=== PATIENT | male | born 1955 | race Caucasian/White ===

== ENCOUNTER 2017-06-22 06:54 | Emergency (ER) | payer OTHER ==
[~2017-06-22] VITALS: Ht 182.9 cm; Wt 107.4 kg
[~2017-06-22 06:54] MED LIST: ANAPROX DS550 M1 PO; ATARAX,VISTARIL50 MG PO; AUGMENTIN875 MG PO; Augmentin PO; BENADRYL25 MG PO; DILAUDID4 MG PO; DULCOLAX10 MG PR; Dulcolax PR; FLAGYL500 MG PO; KEFLEX500 MG PO; MORPHINE SULFAT15 M1 PO; NOHOMEMEDS; PERCOCET 5/31 TABLET PO; PREDNISONE10 MG PO; SILVADENE20 GM TP; Silvadene,SSD,Therma TP; THERAGRAN1 TABLET PO; Theragran PO; VICODIN,LORT1 TABLET PO
[2017-06-22 07:23] LABS: BASOPHIL COUNT 0.1 K/uL (0-0.1); EOSINOPHIL (%) 6.9 % (0-5); EOSINOPHIL COUNT 0.7 K/uL (0-0.3); HEMATOCRIT 49.8 % (38.0-50.0); IMMATURE GRANULOCYTE (%) 0.3 % (0.0-0.7); INSTRUMENT ABS NEUTROPHIL CT 5.4 K/uL; LYMPHOCYTE COUNT 2.8 K/uL (1.0-2.8); MCH 31.3 PG (29.0-34.0); MCHC 34.7 G/DL (30.0-36.0); MCV 90.1 FL (86-99); MEAN PLAT.VOLUME 9.2 uM^3 (9.0-12.4); MONOCYTE (%) 8.1 % (3-12); MONOCYTE COUNT 0.8 K/uL (0-0.8); NEUTROPHIL (%) 55.7 % (45-76); NEUTROPHIL COUNT 5.4 K/uL (1.8-6.4); PLATELET COUNT 336 K/uL (156-360); RBC DIS.WIDTH-CV 13.9 % (11.8-14.6); RBC DIS.WIDTH-SD 46.5 % (39-53); RED BLOOD COUNT 5.53 M/uL (4.00-5.50); WHITE BLOOD COUNT 9.7 K/uL (4.1-10.2)
[2017-06-22 07:29] LABS: INTER. NORMALIZED RATIO 1.1
[2017-06-22 08:03] LABS: ANION GAP 9 MEQ/L (2-14); CHLORIDE 107 MEQ/L (99-109); POTASSIUM 3.8 MEQ/L (3.7-5.4); SAMPLE HEMOLYSIS CHECK 0; SAMPLE ICTERIC CHECK 0; SAMPLE LIPEMIA CHECK 0; SODIUM 141 MEQ/L (136-147); TOTAL BILIRUBIN 0.4 MG/DL (0.0-1.0)
[2017-06-22 08:08] LABS: ALKALINE PHOSPHATASE 77 IU/L (3-129); GFR ESTIMATE (CALCULATED) > 59 mL/min/; GLUCOSE 94 mg/dL (70-99); UREA NITROGEN (BUN) 7 mg/dL (9-23)
[2017-06-22 09:29] VITALS: BP 148/93
== END 2017-06-22 09:30 | disposition home or self-care (01) ==
LOC: EME 06:54
PROVIDERS: Emergency Medicine
DX: R10.10 Upper abdominal pain, unspecified (principal); M10.9 Gout, unspecified; M06.9 Rheumatoid arthritis, unspecified; F17.200 Nicotine dependence, unspecified, uncomplicated; Z79.891 Long term (current) use of opiate analgesic; Z59.0 Homelessness
CPT/HCPCS: 74022; 80053; 85025; 85610; 99281; 99284

== ENCOUNTER 2018-02-19 04:26 | Inpatient (IN) | payer OTHER ==
[~2018-02-19] VITALS: Ht 185.4 cm; Wt 121.0 kg
[2018-02-19 04:46] LABS: BASOPHIL (%) 0.5 % (0-1); BASOPHIL COUNT 0.1 K/uL (0-0.1); EOSINOPHIL (%) 0.4 % (0-5); EOSINOPHIL COUNT 0.1 K/uL (0-0.3); HEMATOCRIT 49.7 % (38.0-50.0); HEMOGLOBIN 17.4 G/DL (12.5-16.6); IMMATURE GRANULOCYTE (%) 0.7 % (0.0-0.7); LYMPHOCYTE (%) 3.8 % (15-42); LYMPHOCYTE COUNT 0.8 K/uL (1.0-2.8); MCH 32.4 PG (29.0-34.0); MCV 92.6 FL (86-99); MONOCYTE (%) 3.8 % (3-12); MONOCYTE COUNT 0.8 K/uL (0-0.8); NEUTROPHIL (%) 90.8 % (45-76); PLATELET COUNT 310 K/uL (156-360); RBC DIS.WIDTH-CV 13.2 % (11.8-14.6); RBC DIS.WIDTH-SD 44.9 % (39-53); RED BLOOD COUNT 5.37 M/uL (4.00-5.50)
[2018-02-19 04:54] LABS: AMYLASE 34 IU/L (1-118); CHLORIDE 101 mEq/L (99-109); POTASSIUM 4.3 mEq/L (3.7-5.4); SODIUM 139 mEq/L (136-147)
[2018-02-19 04:56] LABS: GLUCOSE 142 mg/dL (70-99); INTER. NORMALIZED RATIO 1.2
[2018-02-19 04:59] LABS: PTT 55.1 SEC (25-37); SERUM ETHYL ALCOHOL < 10 mg/dL
[2018-02-19 05:00] LABS: CREATININE 1.1 mg/dL (0.6-1.3); GFR ESTIMATE (CALCULATED) > 59 mL/min/ (58.99-99999)
[2018-02-19 05:01] LABS: UREA NITROGEN (BUN) 10 mg/dL (9-23)
[2018-02-19 05:03] LABS: LIPASE 4 U/L (1.0-51.0)
[2018-02-19 05:09] LABS: TROP-I INTERPRETATION POSITIVE
[2018-02-19 05:10] LABS: TROPONIN-I 0.95 ng/mL (0.0-0.30)
[2018-02-19 08:00] VITALS: BP 108/69
[2018-02-19 08:18] LABS: SITE FEM ALINE
[2018-02-19 08:19] LABS: CARBOXY HGB 2.4 % (0-5); DEVICE 840 PB; FI02 100 %; INSPIRATION TIME 0.8 seconds; MECHANICAL RATE 20 resp/min; METHEMOGLOBIN 1.2 % (0-1.5); MODE AC VC+; O2 FLOW 60 L/MIN; PCO2 53 mm Hg (35-45); PEEP 5 CM/H20; PO2 253 mm Hg (80-100); TIDAL VOLUME 500 ML; TOTAL RESP RATE 27 resp/min
[2018-02-19 08:20] LABS: BASE EXCESS -13.5 mEq/L (-3 to +3); BICARBONATE 16.5 mEq/L (22-26)
[2018-02-19 09:32] LABS: DEVICE 840 PB; FI02 100 %; MECHANICAL RATE 12 resp/min; MODE AC; O2 FLOW 50 L/MIN; SITE FEM ALINE; TOTAL RESP RATE 12 resp/min
[2018-02-19 09:33] LABS: BASE EXCESS -8.6 mEq/L (-3 to +3); BICARBONATE 19.2 mEq/L (22-26); CARBOXY HGB 1.9 % (0-5); METHEMOGLOBIN 1.5 % (0-1.5); PCO2 47 mm Hg (35-45); PEEP 5 CM/H20; PO2 283 mm Hg (80-100); TIDAL VOLUME 800 ML; pH 7.22 (7.35-7.45)
[2018-02-19 10:49] LABS: APPEARANCE CLEAR ((CLEAR)); BILIRUBIN NEGATIVE; BLOOD MODERATE; COLOR STRAW ((YELLOW)); GLUCOSE (STRIP) NEGATIVE; KETONES NEGATIVE; LEUKOCYTES NEGATIVE; NITRITE NEGATIVE; PROTEIN (STRIP) NEGATIVE; SPECIFIC GRAVITY 1.017 (1.000-1.030); UROBILINOGEN 0.2 MG/DL (0.2-1.0)
[2018-02-19 11:05] LABS: BACTERIA NONE SEEN /HPF; EPITHELIAL CELLS NONE SEEN /HPF; MUCUS NONE SEEN /LPF; RED BLOOD CELLS NONE SEEN /HPF (0-5); UCUL ADDED? NO; WHITE BLOOD CELLS NONE SEEN /HPF (0-5)
[2018-02-19 11:48] LABS: CARBOXY HGB 1.4 % (0-5); PCO2 55 mm Hg (35-45); PO2 378 mm Hg (80-100)
[2018-02-19 11:49] LABS: BASE EXCESS -13.1 mEq/L (-3 to +3); BICARBONATE 17.1 mEq/L (22-26); DEVICE 840 PB; FI02 100 %; MECHANICAL RATE 12 resp/min; METHEMOGLOBIN 1.3 % (0-1.5); MODE AC; O2 FLOW 50 L/MIN; SITE FEM ALINE; TOTAL RESP RATE 12 resp/min
[2018-02-19 11:50] LABS: PEEP 5 CM/H20; TIDAL VOLUME 800 ML
[2018-02-19 13:03] LABS: BASOPHIL (%) 0.4 % (0-1); BASOPHIL COUNT 0.1 K/uL (0-0.1); EOSINOPHIL (%) 0 % (0-5); IMMATURE GRANULOCYTE (%) 1.3 % (0.0-0.7); LYMPHOCYTE (%) 2.4 % (15-42); LYMPHOCYTE COUNT 0.8 K/uL (1.0-2.8); MONOCYTE (%) 5.9 % (3-12); MONOCYTE COUNT 1.9 K/uL (0-0.8); NEUTROPHIL COUNT 28.5 K/uL (1.8-6.4); PLATELET COUNT 352 K/uL (156-360)
[2018-02-19 13:05] LABS: CARBON DIOXIDE (BICARBONATE) 20.6 MEQ/L (20-31)
[2018-02-19 13:05] LABS: INTER. NORMALIZED RATIO 1.2
[2018-02-19 13:31] LABS: PCO2 37 mm Hg (35-45); PO2 362 mm Hg (80-100); pH 7.24 (7.35-7.45)
[2018-02-19 13:32] LABS: BASE EXCESS -10.7 mEq/L (-3 to +3); BICARBONATE 15.9 mEq/L (22-26); CARBOXY HGB 1.3 % (0-5); METHEMOGLOBIN 1.2 % (0-1.5)
[2018-02-19 13:32] LABS: CHLORIDE 104 MEQ/L (99-109); GFR ESTIMATE (CALCULATED) > 59 mL/min/ (58.99-99999); MAGNESIUM 1.8 mg/dl (1.3-2.7); PHOSPHORUS 4.4 mg/dL (2.5-4.9); POTASSIUM 4.4 MEQ/L (3.7-5.4); SODIUM 135 MEQ/L (136-147); UREA NITROGEN (BUN) 12 mg/dL (9-23)
[2018-02-19 13:33] LABS: DEVICE 840 PB; FI02 100 %; MECHANICAL RATE 16 resp/min; MODE AC; O2 FLOW 50 L/MIN; PEEP 5 CM/H20; SITE FEM ALINE; TIDAL VOLUME 800 ML; TOTAL RESP RATE 16 resp/min
[2018-02-19 13:33] LABS: GLUCOSE 317 mg/dL (70-99)
[2018-02-19 13:40] LABS: HEMATOCRIT 48.6 % (38.0-50.0); HEMOGLOBIN 16.5 G/DL (12.5-16.6); MCH 31.6 PG (29.0-34.0); MCV 93.1 FL (86-99); RBC DIS.WIDTH-CV 13.4 % (11.8-14.6); RBC DIS.WIDTH-SD 46.1 % (39-53); RED BLOOD COUNT 5.22 M/uL (4.00-5.50); TROP-I INTERPRETATION POSITIVE; TROPONIN-I 60.38 ng/mL (0.0-0.30)
[2018-02-19 13:43] LABS: WHITE BLOOD COUNT 31.7 K/uL (4.1-10.2)
[2018-02-19 14:36] LABS: HDL CHOLESTEROL 41 MG/DL (Desirable>=40); LDL CHOLESTEROL 85 mg/dL (Desirable<100); NON-HDL CHOLESTEROL 98 mg/dL (Desirable<160); TOTAL CHOLESTEROL 139 mg/dL (Desirable<200); TOTAL CK 2701 IU/L (1-294); TRIGLYCERIDES 66 MG/DL (Normal: <150)
[2018-02-19 14:43] LABS: CK-MB 590.9 ng/mL (0.0-4.9); CKMB RELATIVE INDEX 21.9 (0.0-3.9); CREATINE KINASE 2701 IU/L (1-294)
[2018-02-19 16:38] LABS: BENZODIAZEPINES, URINE SCREEN POSITIVE (200 ng/mL); UR CREATININE CONCENTRATION 93.5 MG/DL
[2018-02-19 17:17] LABS: URINE OSMOLALITY 570 MOSM/KG (300-1100)
[2018-02-19 18:09] LABS: BASOPHIL (%) 0.3 % (0-1); BASOPHIL COUNT 0.1 K/uL (0-0.1); EOSINOPHIL (%) 0 % (0-5); HEMATOCRIT 47.8 % (38.0-50.0); HEMOGLOBIN 15.9 G/DL (12.5-16.6); IMMATURE GRANULOCYTE (%) 0.8 % (0.0-0.7); LYMPHOCYTE (%) 3.1 % (15-42); LYMPHOCYTE COUNT 0.8 K/uL (1.0-2.8); MCH 31.1 PG (29.0-34.0); MCHC 33.3 G/DL (30.0-36.0); MCV 93.4 FL (86-99); MONOCYTE COUNT 1.1 K/uL (0-0.8); NEUTROPHIL (%) 91.8 % (45-76); NEUTROPHIL COUNT 25.2 K/uL (1.8-6.4); PLATELET COUNT 316 K/uL (156-360); RBC DIS.WIDTH-CV 13.3 % (11.8-14.6); RBC DIS.WIDTH-SD 46.1 % (39-53); RED BLOOD COUNT 5.12 M/uL (4.00-5.50); WHITE BLOOD COUNT 27.5 K/uL (4.1-10.2)
[2018-02-19 18:19] LABS: CHLORIDE 108 MEQ/L (99-109); MAGNESIUM 1.8 mg/dl (1.3-2.7); SODIUM 135 MEQ/L (136-147)
[2018-02-19 18:25] LABS: CREATININE 0.9 MG/DL (0.6-1.3); GFR ESTIMATE (CALCULATED) > 59 mL/min/ (58.99-99999); GLUCOSE 286 mg/dL (70-99); PHOSPHORUS 4.5 mg/dL (2.5-4.9); UREA NITROGEN (BUN) 12 mg/dL (9-23)
[2018-02-19 18:35] LABS: COMMENTS - BLOOD GASES VENOUS; DEVICE VENT; FI02 50 %; MECHANICAL RATE 15 resp/min; MODE ACVC; PCO2 57 mm Hg (35-45); PEEP 5 CM/H20; SITE CENTRAL LINE; TIDAL VOLUME 800 ML; TOTAL RESP RATE 15 resp/min; pH 7.14 (7.35-7.45)
[2018-02-19 18:36] LABS: BASE EXCESS -10.4 mEq/L (-3 to +3); BICARBONATE 19.4 mEq/L (22-26); PO2 30 mm Hg (80-100)
[2018-02-19 18:45] LABS: TROP-I INTERPRETATION POSITIVE; TROPONIN-I 57.04 ng/mL (0.0-0.30)
[2018-02-19 19:00] VITALS: BP 85/57
[2018-02-20 03:36] LABS: INTER. NORMALIZED RATIO 1.2
[2018-02-20 03:39] LABS: PTT 44.7 SEC (25-37)
[2018-02-20 03:46] LABS: TOTAL CK 2480 IU/L (1-294)
[2018-02-20 03:52] LABS: TROP-I INTERPRETATION POSITIVE
[2018-02-20 04:09] LABS: CK-MB 379.1 ng/mL (0.0-4.9); CKMB RELATIVE INDEX 15.3 (0.0-3.9); CREATINE KINASE 2480 IU/L (1-294)
[2018-02-20 04:10] LABS: TROPONIN-I 93.68 ng/mL (0.0-0.30)
[2018-02-20 08:58] LABS: HEMOGLOBIN A1c (GLYCOHEMOGLOB) 5.6 % (Below 5.7)
[2018-02-20 16:51] LABS: CHLORIDE 113 MEQ/L (99-109); CREATININE 0.9 MG/DL (0.6-1.3); GFR ESTIMATE (CALCULATED) > 59 mL/min/ (58.99-99999); GLUCOSE 144 mg/dL (70-99); POTASSIUM 4.4 MEQ/L (3.7-5.4); SODIUM 140 MEQ/L (136-147); UREA NITROGEN (BUN) 15 mg/dL (9-23)
[2018-02-20 17:30] LABS: TROP-I INTERPRETATION POSITIVE
[2018-02-21 08:15] LABS: DEVICE 940; FI02 40 %; MODE A/C; SITE LINE
[2018-02-21 08:16] LABS: MECHANICAL RATE 12 resp/min; PEEP 10 CM/H20; TIDAL VOLUME 800 ML; TOTAL RESP RATE 12 resp/min; pH 7.34 (7.35-7.45)
[2018-02-21 08:17] LABS: BASE EXCESS -1.7 mEq/L (-3 to +3); BICARBONATE 24.3 mEq/L (22-26); CARBOXY HGB 1.6 % (0-5); METHEMOGLOBIN 0.9 % (0-1.5); PCO2 45 mm Hg (35-45); PO2 35 mm Hg (80-100)
[2018-02-21 08:18] LABS: CHLORIDE 112 MEQ/L (99-109); CREATININE 0.8 MG/DL (0.6-1.3); GFR ESTIMATE (CALCULATED) > 59 mL/min/ (58.99-99999); GLUCOSE 127 mg/dL (70-99); POTASSIUM 4.6 MEQ/L (3.7-5.4); SODIUM 143 MEQ/L (136-147); UREA NITROGEN (BUN) 16 mg/dL (9-23)
[2018-02-21 09:30] LABS: CARBOXY HGB 1.5 % (0-5); COMMENTS - BLOOD GASES C+; DEVICE 840; FI02 40 %; MECHANICAL RATE 12 resp/min; MODE A/C; PCO2 41 mm Hg (35-45); PEEP 10 CM/H20; PO2 93 mm Hg (80-100); SITE ALINE; TIDAL VOLUME 800 ML; TOTAL RESP RATE 12 resp/min; pH 7.36 (7.35-7.45)
[2018-02-21 09:31] LABS: BASE EXCESS -2.2 mEq/L (-3 to +3); BICARBONATE 23.2 mEq/L (22-26); METHEMOGLOBIN 1.4 % (0-1.5)
[2018-02-21 10:25] LABS: CREATINE KINASE 530 IU/L (1-294); TOTAL CK 530 IU/L (1-294)
[2018-02-21 10:44] LABS: TROP-I INTERPRETATION POSITIVE; TROPONIN-I 26.86 ng/mL (0.0-0.30)
[2018-02-21 11:20] LABS: CK-MB 36.8 ng/mL (0.0-4.9); CKMB RELATIVE INDEX 6.9 (0.0-3.9)
[2018-02-21 13:37] LABS: COMMENTS - BLOOD GASES C+; DEVICE 840; FI02 40 %; MECHANICAL RATE 12 resp/min; MODE A/C; PCO2 40 mm Hg (35-45); PEEP 10 CM/H20; PO2 83 mm Hg (80-100); SITE ALINE; TIDAL VOLUME 800 ML; TOTAL RESP RATE 12 resp/min; pH 7.37 (7.35-7.45)
[2018-02-21 13:38] LABS: BICARBONATE 23.1 mEq/L (22-26); CARBOXY HGB 1.1 % (0-5); METHEMOGLOBIN 1.3 % (0-1.5)
[2018-02-22] VITALS (14 sets, daily range): BP systolic 85–118; BP diastolic 53–76
[2018-02-22 00:10] LABS: COMMENTS - BLOOD GASES C; DEVICE VENT; FI02 50 %; MECHANICAL RATE 12 resp/min; MODE AC; PEEP 10 CM/H20; SITE RF ALINE; TIDAL VOLUME 800 ML; TOTAL RESP RATE 12 resp/min
[2018-02-22 00:11] LABS: PCO2 42 mm Hg (35-45); PO2 105 mm Hg (80-100); pH 7.37 (7.35-7.45)
[2018-02-22 00:12] LABS: BICARBONATE 24.3 mEq/L (22-26); CARBOXY HGB 2.6 % (0-5); METHEMOGLOBIN 0.6 % (0-1.5); O2 SATURATION (CALCULATED) 97.2 % (95-99)
[2018-02-22 04:37] LABS: BASOPHIL (%) 0.6 % (0-1); BASOPHIL COUNT 0.1 K/uL (0-0.1); EOSINOPHIL (%) 0.7 % (0-5); EOSINOPHIL COUNT 0.1 K/uL (0-0.3); HEMOGLOBIN 12.5 G/DL (12.5-16.6); IMMATURE GRANULOCYTE (%) 0.6 % (0.0-0.7); LYMPHOCYTE (%) 17.3 % (15-42); LYMPHOCYTE COUNT 2.1 K/uL (1.0-2.8); MCHC 33.8 G/DL (30.0-36.0); MCV 94.6 FL (86-99); MONOCYTE COUNT 1.2 K/uL (0-0.8); NEUTROPHIL (%) 70.8 % (45-76); NEUTROPHIL COUNT 8.6 K/uL (1.8-6.4); RBC DIS.WIDTH-CV 14.9 % (11.8-14.6); RBC DIS.WIDTH-SD 51.7 % (39-53); RED BLOOD COUNT 3.91 M/uL (4.00-5.50); WHITE BLOOD COUNT 12.1 K/uL (4.1-10.2)
[2018-02-22 04:38] LABS: INTER. NORMALIZED RATIO 1.4
[2018-02-22 04:40] LABS: PTT 64.4 SEC (25-37)
[2018-02-22 04:45] LABS: ALBUMIN 2.8 g/dL (3.2-4.8); POTASSIUM 4.2 mEq/L (3.7-5.4); SODIUM 141 mEq/L (136-147)
[2018-02-22 04:47] LABS: GLUCOSE 100 mg/dL (70-99); TOTAL PROTEIN 5.1 g/dL (6.4-8.3)
[2018-02-22 04:49] LABS: TOTAL BILIRUBIN 0.5 mg/dL (0.0-1.0)
[2018-02-22 04:51] LABS: ALKALINE PHOSPHATASE 63 IU/L (3-129); CREATININE 0.7 mg/dL (0.6-1.3); GFR ESTIMATE (CALCULATED) > 59 mL/min/ (58.99-99999)
[2018-02-22 04:52] LABS: AST (GOT) 63 IU/L (2-34); UREA NITROGEN (BUN) 16 mg/dL (9-23)
[2018-02-22 04:53] LABS: DIRECT BILIRUBIN 0.3 mg/dL (0.0-0.3)
[2018-02-22 04:54] LABS: ALT (GPT) 51 IU/L (3-49)
[2018-02-22 04:55] LABS: CHLORIDE 113 mEq/L (99-109)
[2018-02-22 05:18] LABS: PLAT.SUFFICIENCY ADEQUATE; PLATELET COUNT UNABLE TO REPORT K/uL (156-360)
[2018-02-22 05:36] LABS: COMMENTS - BLOOD GASES C; DEVICE VENT; SITE RF ALINE
[2018-02-22 05:37] LABS: FI02 50 %; MECHANICAL RATE 12 resp/min; MODE AC; PEEP 10 CM/H20; TIDAL VOLUME 750 ML; TOTAL RESP RATE 12 resp/min
[2018-02-22 05:38] LABS: BASE EXCESS -1.3 mEq/L (-3 to +3); BICARBONATE 24.3 mEq/L (22-26); CARBOXY HGB 1.4 % (0-5); O2 SATURATION (CALCULATED) 96.2 % (95-99); PCO2 43 mm Hg (35-45); PO2 99 mm Hg (80-100); pH 7.36 (7.35-7.45)
[2018-02-22 05:46] LABS: COMMENTS - BLOOD GASES MIXED VENOUS; DEVICE VENT; FI02 50 %; SITE SWAN
[2018-02-22 05:47] LABS: BICARBONATE 24.3 mEq/L (22-26); CARBOXY HGB 2.1 % (0-5); MECHANICAL RATE 12 resp/min; METHEMOGLOBIN 0.6 % (0-1.5); MODE AC; O2 SATURATION (CALCULATED) 75.9 % (95-99); PCO2 44 mm Hg (35-45); PEEP 10 CM/H20; PO2 38 mm Hg (80-100); TIDAL VOLUME 750 ML; TOTAL RESP RATE 12 resp/min; pH 7.35 (7.35-7.45)
[2018-02-22 05:48] LABS: BASE EXCESS -1.4 mEq/L (-3 to +3)
[2018-02-22] MEDS ORDERED: AVENTYL,PAMELOR50 MG PO (11:52)
[2018-02-23] VITALS (23 sets, daily range): BP systolic 88–105; BP diastolic 54–71
[2018-02-23 08:30] LABS: BASOPHIL (%) 0.4 % (0-1); EOSINOPHIL (%) 2.9 % (0-5); EOSINOPHIL COUNT 0.3 K/uL (0-0.3); HEMATOCRIT 36.3 % (38.0-50.0); HEMOGLOBIN 11.5 G/DL (12.5-16.6); IMMATURE GRANULOCYTE (%) 0.5 % (0.0-0.7); LYMPHOCYTE COUNT 2.2 K/uL (1.0-2.8); MCH 30.9 PG (29.0-34.0); MCHC 31.7 G/DL (30.0-36.0); MCV 97.6 FL (86-99); MONOCYTE (%) 11.5 % (3-12); MONOCYTE COUNT 1.3 K/uL (0-0.8); NEUTROPHIL (%) 64.7 % (45-76); NEUTROPHIL COUNT 7.1 K/uL (1.8-6.4); RBC DIS.WIDTH-CV 14.7 % (11.8-14.6); RBC DIS.WIDTH-SD 53.5 % (39-53); RED BLOOD COUNT 3.72 M/uL (4.00-5.50)
[2018-02-23 08:39] LABS: PLATELET COUNT 162 K/uL (156-360)
[2018-02-23 09:04] LABS: ALBUMIN 2.8 G/DL (3.2-4.8); ALKALINE PHOSPHATASE 60 IU/L (3-129); ALT (GPT) 34 IU/L (3-49); AST (GOT) 37 IU/L (2-34); CHLORIDE 112 MEQ/L (99-109); CREATININE 0.7 MG/DL (0.6-1.3); GFR ESTIMATE (CALCULATED) > 59 mL/min/ (58.99-99999); GLUCOSE 98 mg/dL (70-99); SODIUM 147 MEQ/L (136-147); TOTAL BILIRUBIN 0.5 MG/DL (0.0-1.0); TOTAL PROTEIN 5.5 G/DL (6.4-8.3); UREA NITROGEN (BUN) 18 mg/dL (9-23)
[2018-02-23 09:10] LABS: HIGH-SENS C-REACTIVE PROTEIN > 8.00 MG/DL (0.02-0.20); MAGNESIUM 2.1 mg/dl (1.3-2.7); PHOSPHORUS 2.7 mg/dL (2.5-4.9)
[2018-02-24] VITALS (23 sets, daily range): BP systolic 100–126; BP diastolic 17–81
[2018-02-24 01:04] LABS: COMMENTS - BLOOD GASES C+; DEVICE VENT; FI02 30 %; MECHANICAL RATE 12 resp/min; MODE ACVC; PCO2 34 mm Hg (35-45); PEEP 5 CM/H20; PO2 58 mm Hg (80-100); SITE LR; TIDAL VOLUME 600 ML; TOTAL RESP RATE 28 resp/min; pH 7.46 (7.35-7.45)
[2018-02-24 01:05] LABS: BASE EXCESS 0.8 mEq/L (-3 to +3); BICARBONATE 24.2 mEq/L (22-26); CARBOXY HGB 1.8 % (0-5); METHEMOGLOBIN 0.9 % (0-1.5); O2 SATURATION (CALCULATED) 94.1 % (95-99)
[2018-02-24 05:24] LABS: BASOPHIL (%) 0.3 % (0-1); EOSINOPHIL (%) 5.2 % (0-5); EOSINOPHIL COUNT 0.5 K/uL (0-0.3); HEMATOCRIT 34.5 % (38.0-50.0); HEMOGLOBIN 11.4 G/DL (12.5-16.6); IMMATURE GRANULOCYTE (%) 0.7 % (0.0-0.7); LYMPHOCYTE (%) 17.3 % (15-42); LYMPHOCYTE COUNT 1.7 K/uL (1.0-2.8); MCH 31.5 PG (29.0-34.0); MCV 95.3 FL (86-99); MONOCYTE (%) 9.4 % (3-12); MONOCYTE COUNT 0.9 K/uL (0-0.8); NEUTROPHIL (%) 67.1 % (45-76); NEUTROPHIL COUNT 6.6 K/uL (1.8-6.4); PLATELET COUNT 184 K/uL (156-360); RBC DIS.WIDTH-CV 14.7 % (11.8-14.6); RBC DIS.WIDTH-SD 51.6 % (39-53); RED BLOOD COUNT 3.62 M/uL (4.00-5.50); WHITE BLOOD COUNT 9.8 K/uL (4.1-10.2)
[2018-02-24 05:39] LABS: BASE EXCESS 1.9 mEq/L (-3 to +3); BICARBONATE 25.6 mEq/L (22-26); CARBOXY HGB 1.5 % (0-5); COMMENTS - BLOOD GASES C+; DEVICE VENT; FI02 40 %; MECHANICAL RATE 12 resp/min; METHEMOGLOBIN 1.1 % (0-1.5); MODE ACVC; O2 SATURATION (CALCULATED) 97.8 % (95-99); PCO2 36 mm Hg (35-45); PEEP 8 CM/H20; PO2 82 mm Hg (80-100); SITE LR; TIDAL VOLUME 600 ML; TOTAL RESP RATE 26 resp/min; pH 7.46 (7.35-7.45)
[2018-02-24 06:07] LABS: ALBUMIN 2.7 G/DL (3.2-4.8); ALKALINE PHOSPHATASE 64 IU/L (3-129); ALT (GPT) 32 IU/L (3-49); AST (GOT) 32 IU/L (2-34); CHLORIDE 112 MEQ/L (99-109); CREATININE 0.6 MG/DL (0.6-1.3); GFR ESTIMATE (CALCULATED) > 59 mL/min/ (58.99-99999); GLUCOSE 124 mg/dL (70-99); PHOSPHORUS 2.4 mg/dL (2.5-4.9); POTASSIUM 3.2 MEQ/L (3.7-5.4); SODIUM 146 MEQ/L (136-147); TOTAL BILIRUBIN 0.4 MG/DL (0.0-1.0); TOTAL PROTEIN 5.3 G/DL (6.4-8.3); UREA NITROGEN (BUN) 18 mg/dL (9-23)
[2018-02-24 06:11] LABS: MAGNESIUM 1.7 mg/dl (1.3-2.7)
[2018-02-24 19:58] LABS: APPEARANCE CLEAR ((CLEAR)); BILIRUBIN NEGATIVE; BLOOD SMALL; COLOR YELLOW ((YELLOW)); GLUCOSE (STRIP) NEGATIVE; KETONES NEGATIVE; LEUKOCYTES NEGATIVE; NITRITE NEGATIVE; PROTEIN (STRIP) NEGATIVE; SPECIFIC GRAVITY 1.028 (1.000-1.030)
[2018-02-24 20:17] LABS: BACTERIA NONE SEEN /HPF; EPITHELIAL CELLS RARE /HPF; MUCUS NONE SEEN /LPF; RED BLOOD CELLS TNTC /HPF (0-5); UCUL ADDED? YES
[2018-02-25] VITALS (21 sets, daily range): BP systolic 89–135; BP diastolic 54–81
[2018-02-25 05:04] LABS: HEMATOCRIT 35.9 % (38.0-50.0); MCH 31.3 PG (29.0-34.0); MCHC 33.4 G/DL (30.0-36.0); MCV 93.7 FL (86-99); PLATELET COUNT 224 K/uL (156-360); RBC DIS.WIDTH-CV 14.5 % (11.8-14.6); RBC DIS.WIDTH-SD 49.5 % (39-53); RED BLOOD COUNT 3.83 M/uL (4.00-5.50); WHITE BLOOD COUNT 10.8 K/uL (4.1-10.2)
[2018-02-25 05:30] LABS: ABS NEUTROPHIL COUNT 7.1; EOSINOPHIL ABS CT 0.2; EOSINOPHILS 1.7 % (0-5.0); LYMPHOCYTES 18.3 % (15.0-45.0); MONOCYTES 12.2 % (0-9.0); MYELOCYTES 1.7 %; PLAT.SUFFICIENCY ADEQUATE; SEG.NEUTROPHILS 66.1 % (46.0-76.0)
[2018-02-25 06:01] LABS: ALBUMIN 2.5 G/DL (3.2-4.8); ALKALINE PHOSPHATASE 61 IU/L (3-129); ALT (GPT) 27 IU/L (3-49); AST (GOT) 24 IU/L (2-34); CHLORIDE 110 MEQ/L (99-109); CREATININE 0.6 MG/DL (0.6-1.3); GFR ESTIMATE (CALCULATED) > 59 mL/min/ (58.99-99999); GLUCOSE 113 mg/dL (70-99); MAGNESIUM 1.7 mg/dl (1.3-2.7); POTASSIUM 3.7 MEQ/L (3.7-5.4); SODIUM 146 MEQ/L (136-147); TOTAL BILIRUBIN 0.4 MG/DL (0.0-1.0); TOTAL PROTEIN 5.3 G/DL (6.4-8.3); UREA NITROGEN (BUN) 17 mg/dL (9-23)
[2018-02-25 06:21] LABS: PHOSPHORUS 4.3 mg/dL (2.5-4.9)
[2018-02-26] VITALS (21 sets, daily range): BP systolic 91–143; BP diastolic 56–86
[2018-02-26 05:02] LABS: HEMOGLOBIN 11.8 G/DL (12.5-16.6); MCH 31.8 PG (29.0-34.0); MCHC 33.7 G/DL (30.0-36.0); MCV 94.3 FL (86-99); PLATELET COUNT 238 K/uL (156-360); RBC DIS.WIDTH-CV 14.6 % (11.8-14.6); RBC DIS.WIDTH-SD 50.3 % (39-53); RED BLOOD COUNT 3.71 M/uL (4.00-5.50); WHITE BLOOD COUNT 10.3 K/uL (4.1-10.2)
[2018-02-26 05:16] LABS: ALBUMIN 2.9 g/dL (3.2-4.8); CHLORIDE 107 mEq/L (99-109); POTASSIUM 3.9 mEq/L (3.7-5.4); SODIUM 143 mEq/L (136-147)
[2018-02-26 05:17] LABS: MAGNESIUM 1.8 mg/dL (1.3-2.7)
[2018-02-26 05:19] LABS: GLUCOSE 117 mg/dL (70-99); TOTAL PROTEIN 5.1 g/dL (6.4-8.3)
[2018-02-26 05:20] LABS: TOTAL BILIRUBIN 0.4 mg/dL (0.0-1.0)
[2018-02-26 05:22] LABS: ALKALINE PHOSPHATASE 83 IU/L (3-129); CREATININE 0.6 mg/dL (0.6-1.3); GFR ESTIMATE (CALCULATED) > 59 mL/min/ (58.99-99999); PHOSPHORUS 3.6 mg/dL (2.5-4.9)
[2018-02-26 05:23] LABS: UREA NITROGEN (BUN) 19 mg/dL (9-23)
[2018-02-26 05:24] LABS: AST (GOT) 33 IU/L (2-34)
[2018-02-26 05:25] LABS: ALT (GPT) 30 IU/L (3-49)
[2018-02-26 05:50] LABS: ABS NEUTROPHIL COUNT 6.7; BAND NEUTROPHILS 0.9 % (0-8.0); BASOPHILS 1.8 %; EOSINOPHIL ABS CT 0.3; EOSINOPHILS 2.7 % (0-5.0); LYMPHOCYTES 26.5 % (15.0-45.0); MONOCYTES 3.5 % (0-9.0); SEG.NEUTROPHILS 64.6 % (46.0-76.0); SMUDGE CELLS 14.2
[2018-02-26 06:01] LABS: VANCOMYCIN, TROUGH 15.8 MCG/ML (10-20)
[2018-02-27] VITALS (24 sets, daily range): BP systolic 87–125; BP diastolic 56–79
[2018-02-27 08:26] LABS: BASOPHIL (%) 0.5 % (0-1); BASOPHIL COUNT 0.1 K/uL (0-0.1); EOSINOPHIL (%) 5.5 % (0-5); EOSINOPHIL COUNT 0.7 K/uL (0-0.3); HEMATOCRIT 38.3 % (38.0-50.0); HEMOGLOBIN 12.7 G/DL (12.5-16.6); LYMPHOCYTE (%) 13.3 % (15-42); LYMPHOCYTE COUNT 1.6 K/uL (1.0-2.8); MCH 31.1 PG (29.0-34.0); MCHC 33.2 G/DL (30.0-36.0); MCV 93.9 FL (86-99); MONOCYTE (%) 9.7 % (3-12); MONOCYTE COUNT 1.1 K/uL (0-0.8); NEUTROPHIL COUNT 8.1 K/uL (1.8-6.4); PLATELET COUNT 300 K/uL (156-360); RBC DIS.WIDTH-CV 14.2 % (11.8-14.6); RBC DIS.WIDTH-SD 47.8 % (39-53); RED BLOOD COUNT 4.08 M/uL (4.00-5.50); WHITE BLOOD COUNT 11.8 K/uL (4.1-10.2)
[2018-02-27 09:02] LABS: ALBUMIN 2.9 G/DL (3.2-4.8); ALKALINE PHOSPHATASE 89 IU/L (3-129); ALT (GPT) 26 IU/L (3-49); AST (GOT) 28 IU/L (2-34); CHLORIDE 105 MEQ/L (99-109); CREATININE 0.6 MG/DL (0.6-1.3); GFR ESTIMATE (CALCULATED) > 59 mL/min/ (58.99-99999); GLUCOSE 125 mg/dL (70-99); PHOSPHORUS 3.5 mg/dL (2.5-4.9); POTASSIUM 4.2 MEQ/L (3.7-5.4); SODIUM 142 MEQ/L (136-147); TOTAL PROTEIN 5.7 G/DL (6.4-8.3); UREA NITROGEN (BUN) 25 mg/dL (9-23); VANCOMYCIN, TROUGH 11.5 MCG/ML (10-20)
[2018-02-27 09:17] LABS: MAGNESIUM 2.1 mg/dl (1.3-2.7); TOTAL BILIRUBIN 0.5 MG/DL (0.0-1.0)
[2018-02-28] VITALS (24 sets, daily range): BP systolic 88–126; BP diastolic 61–85
[2018-02-28 05:41] LABS: BASOPHIL (%) 0.5 % (0-1); BASOPHIL COUNT 0.1 K/uL (0-0.1); EOSINOPHIL (%) 5.1 % (0-5); EOSINOPHIL COUNT 0.7 K/uL (0-0.3); HEMATOCRIT 37.2 % (38.0-50.0); HEMOGLOBIN 12.3 G/DL (12.5-16.6); IMMATURE GRANULOCYTE (%) 1.1 % (0.0-0.7); LYMPHOCYTE (%) 14.3 % (15-42); MCH 31.1 PG (29.0-34.0); MCHC 33.1 G/DL (30.0-36.0); MCV 94.2 FL (86-99); MONOCYTE (%) 8.5 % (3-12); MONOCYTE COUNT 1.2 K/uL (0-0.8); NEUTROPHIL (%) 70.5 % (45-76); NEUTROPHIL COUNT 9.8 K/uL (1.8-6.4); PLATELET COUNT 340 K/uL (156-360); RBC DIS.WIDTH-CV 14.1 % (11.8-14.6); RBC DIS.WIDTH-SD 47.8 % (39-53); RED BLOOD COUNT 3.95 M/uL (4.00-5.50); WHITE BLOOD COUNT 13.8 K/uL (4.1-10.2)
[2018-02-28 06:30] LABS: ALKALINE PHOSPHATASE 98 IU/L (3-129); ALT (GPT) 24 IU/L (3-49); AST (GOT) 25 IU/L (2-34); CHLORIDE 106 MEQ/L (99-109); CREATININE 0.6 MG/DL (0.6-1.3); GFR ESTIMATE (CALCULATED) > 59 mL/min/ (58.99-99999); GLUCOSE 123 mg/dL (70-99); MAGNESIUM 2.1 mg/dl (1.3-2.7); PHOSPHORUS 3.8 mg/dL (2.5-4.9); POTASSIUM 4.2 MEQ/L (3.7-5.4); SODIUM 144 MEQ/L (136-147); TOTAL BILIRUBIN 0.5 MG/DL (0.0-1.0); TOTAL PROTEIN 5.8 G/DL (6.4-8.3); UREA NITROGEN (BUN) 26 mg/dL (9-23)
[2018-03-01] VITALS (24 sets, daily range): BP systolic 83–151; BP diastolic 54–82
[2018-03-01 06:15] LABS: BASOPHIL (%) 0.5 % (0-1); BASOPHIL COUNT 0.1 K/uL (0-0.1); EOSINOPHIL (%) 5.4 % (0-5); EOSINOPHIL COUNT 0.7 K/uL (0-0.3); HEMATOCRIT 37.2 % (38.0-50.0); HEMOGLOBIN 12.5 G/DL (12.5-16.6); IMMATURE GRANULOCYTE (%) 0.9 % (0.0-0.7); LYMPHOCYTE (%) 16.1 % (15-42); LYMPHOCYTE COUNT 2.1 K/uL (1.0-2.8); MCH 31.6 PG (29.0-34.0); MCHC 33.6 G/DL (30.0-36.0); MCV 93.9 FL (86-99); MONOCYTE (%) 6.9 % (3-12); MONOCYTE COUNT 0.9 K/uL (0-0.8); NEUTROPHIL (%) 70.2 % (45-76); PLATELET COUNT 397 K/uL (156-360); RBC DIS.WIDTH-CV 14.4 % (11.8-14.6); RBC DIS.WIDTH-SD 48.8 % (39-53); RED BLOOD COUNT 3.96 M/uL (4.00-5.50); WHITE BLOOD COUNT 12.8 K/uL (4.1-10.2)
[2018-03-01 06:44] LABS: ALBUMIN 3.1 G/DL (3.2-4.8); ALKALINE PHOSPHATASE 97 IU/L (3-129); ALT (GPT) 36 IU/L (3-49); CHLORIDE 105 MEQ/L (99-109); CREATININE 0.6 MG/DL (0.6-1.3); GFR ESTIMATE (CALCULATED) > 59 mL/min/ (58.99-99999); GLUCOSE 151 mg/dL (70-99); MAGNESIUM 2.3 mg/dl (1.3-2.7); PHOSPHORUS 4.3 mg/dL (2.5-4.9); POTASSIUM 3.7 MEQ/L (3.7-5.4); SODIUM 144 MEQ/L (136-147); TOTAL BILIRUBIN 0.5 MG/DL (0.0-1.0); TOTAL PROTEIN 5.8 G/DL (6.4-8.3); UREA NITROGEN (BUN) 27 mg/dL (9-23)
[2018-03-01 06:45] LABS: AST (GOT) 37 IU/L (2-34)
[2018-03-02] VITALS (14 sets, daily range): BP systolic 108–146; BP diastolic 62–92
[2018-03-02 05:33] LABS: BASOPHIL (%) 0.5 % (0-1); BASOPHIL COUNT 0.1 K/uL (0-0.1); EOSINOPHIL (%) 1.7 % (0-5); EOSINOPHIL COUNT 0.3 K/uL (0-0.3); HEMATOCRIT 41.5 % (38.0-50.0); HEMOGLOBIN 13.9 G/DL (12.5-16.6); IMMATURE GRANULOCYTE (%) 0.6 % (0.0-0.7); LYMPHOCYTE (%) 13.1 % (15-42); MCH 31.4 PG (29.0-34.0); MCHC 33.5 G/DL (30.0-36.0); MCV 93.9 FL (86-99); MONOCYTE (%) 7.8 % (3-12); MONOCYTE COUNT 1.2 K/uL (0-0.8); NEUTROPHIL (%) 76.3 % (45-76); NEUTROPHIL COUNT 11.8 K/uL (1.8-6.4); RBC DIS.WIDTH-CV 14.1 % (11.8-14.6); RBC DIS.WIDTH-SD 47.9 % (39-53); RED BLOOD COUNT 4.42 M/uL (4.00-5.50); WHITE BLOOD COUNT 15.5 K/uL (4.1-10.2)
[2018-03-02 06:01] LABS: ALBUMIN 3.4 G/DL (3.2-4.8); ALKALINE PHOSPHATASE 141 IU/L (3-129); ALT (GPT) 82 IU/L (3-49); AST (GOT) 83 IU/L (2-34); CHLORIDE 105 MEQ/L (99-109); CREATININE 0.6 MG/DL (0.6-1.3); GFR ESTIMATE (CALCULATED) > 59 mL/min/ (58.99-99999); GLUCOSE 88 mg/dL (70-99); MAGNESIUM 2.2 mg/dl (1.3-2.7); PHOSPHORUS 4.3 mg/dL (2.5-4.9); POTASSIUM 4.1 MEQ/L (3.7-5.4); SODIUM 145 MEQ/L (136-147); TOTAL BILIRUBIN 0.6 MG/DL (0.0-1.0); TOTAL PROTEIN 6.7 G/DL (6.4-8.3); UREA NITROGEN (BUN) 24 mg/dL (9-23)
[2018-03-02 06:21] LABS: PLATELET COUNT 520 K/uL (156-360)
[2018-03-03 04:25] VITALS: BP 107/59
[2018-03-03 05:26] LABS: BASOPHIL (%) 0.4 % (0-1); BASOPHIL COUNT 0.1 K/uL (0-0.1); EOSINOPHIL (%) 3.6 % (0-5); EOSINOPHIL COUNT 0.6 K/uL (0-0.3); HEMATOCRIT 39.8 % (38.0-50.0); HEMOGLOBIN 13.2 G/DL (12.5-16.6); IMMATURE GRANULOCYTE (%) 0.6 % (0.0-0.7); LYMPHOCYTE (%) 15.1 % (15-42); LYMPHOCYTE COUNT 2.6 K/uL (1.0-2.8); MCH 31.4 PG (29.0-34.0); MCHC 33.2 G/DL (30.0-36.0); MCV 94.8 FL (86-99); MONOCYTE (%) 7.1 % (3-12); MONOCYTE COUNT 1.2 K/uL (0-0.8); NEUTROPHIL (%) 73.2 % (45-76); NEUTROPHIL COUNT 12.5 K/uL (1.8-6.4); PLATELET COUNT 550 K/uL (156-360); RBC DIS.WIDTH-CV 14.3 % (11.8-14.6); RBC DIS.WIDTH-SD 48.7 % (39-53); WHITE BLOOD COUNT 17.1 K/uL (4.1-10.2)
[2018-03-03 05:54] LABS: ALBUMIN 3.3 G/DL (3.2-4.8); ALKALINE PHOSPHATASE 114 IU/L (3-129); ALT (GPT) 91 IU/L (3-49); AST (GOT) 72 IU/L (2-34); CHLORIDE 107 MEQ/L (99-109); GLUCOSE 91 mg/dL (70-99); MAGNESIUM 2.2 mg/dl (1.3-2.7); PHOSPHORUS 3.4 mg/dL (2.5-4.9); POTASSIUM 3.9 MEQ/L (3.7-5.4); SODIUM 146 MEQ/L (136-147); TOTAL BILIRUBIN 0.6 MG/DL (0.0-1.0); UREA NITROGEN (BUN) 24 mg/dL (9-23)
[2018-03-03 06:48] LABS: CREATININE 0.7 MG/DL (0.6-1.3); GFR ESTIMATE (CALCULATED) > 59 mL/min/ (58.99-99999)
[2018-03-03 07:29] VITALS: BP 127/77
[2018-03-03 11:34] VITALS: BP 129/72
[2018-03-03 14:12] LABS: HEMATOCRIT 40.6 % (38.0-50.0); HEMOGLOBIN 13.7 G/DL (12.5-16.6); MCH 31.9 PG (29.0-34.0); MCHC 33.7 G/DL (30.0-36.0); MCV 94.4 FL (86-99); PLATELET COUNT 567 K/uL (156-360); RBC DIS.WIDTH-CV 14.2 % (11.8-14.6); RBC DIS.WIDTH-SD 48.1 % (39-53); WHITE BLOOD COUNT 17.5 K/uL (4.1-10.2)
[2018-03-03 17:54] VITALS: BP 119/77
[2018-03-03 19:15] VITALS: BP 141/78
[2018-03-04] VITALS (7 sets, daily range): BP systolic 124–154; BP diastolic 60–85
[2018-03-04 05:33] LABS: BASOPHIL (%) 0.5 % (0-1); BASOPHIL COUNT 0.1 K/uL (0-0.1); EOSINOPHIL (%) 4.6 % (0-5); EOSINOPHIL COUNT 0.8 K/uL (0-0.3); HEMATOCRIT 42.5 % (38.0-50.0); IMMATURE GRANULOCYTE (%) 0.7 % (0.0-0.7); LYMPHOCYTE (%) 17.8 % (15-42); MCH 31.2 PG (29.0-34.0); MCHC 32.9 G/DL (30.0-36.0); MCV 94.7 FL (86-99); MONOCYTE (%) 6.1 % (3-12); NEUTROPHIL (%) 70.3 % (45-76); NEUTROPHIL COUNT 11.7 K/uL (1.8-6.4); PLATELET COUNT 613 K/uL (156-360); RBC DIS.WIDTH-CV 14.1 % (11.8-14.6); RED BLOOD COUNT 4.49 M/uL (4.00-5.50); WHITE BLOOD COUNT 16.6 K/uL (4.1-10.2)
[2018-03-04 06:41] LABS: ALBUMIN 3.6 G/DL (3.2-4.8); ALKALINE PHOSPHATASE 115 IU/L (3-129); ALT (GPT) 94 IU/L (3-49); AST (GOT) 61 IU/L (2-34); CHLORIDE 108 MEQ/L (99-109); CREATININE 0.6 MG/DL (0.6-1.3); GFR ESTIMATE (CALCULATED) > 59 mL/min/ (58.99-99999); GLUCOSE 84 mg/dL (70-99); MAGNESIUM 2.2 mg/dl (1.3-2.7); PHOSPHORUS 3.6 mg/dL (2.5-4.9); POTASSIUM 4.1 MEQ/L (3.7-5.4); SODIUM 145 MEQ/L (136-147); TOTAL BILIRUBIN 0.6 MG/DL (0.0-1.0); TOTAL PROTEIN 6.4 G/DL (6.4-8.3); UREA NITROGEN (BUN) 20 mg/dL (9-23)
[2018-03-04 17:01] LABS: APPEARANCE CLEAR ((CLEAR)); BILIRUBIN NEGATIVE; BLOOD NEGATIVE; COLOR YELLOW ((YELLOW)); GLUCOSE (STRIP) NEGATIVE; KETONES NEGATIVE; LEUKOCYTES NEGATIVE; NITRITE NEGATIVE; PROTEIN (STRIP) NEGATIVE; SPECIFIC GRAVITY 1.027 (1.000-1.030); UCUL ADDED? NO
[2018-03-05 03:30] VITALS: BP 133/67
[2018-03-05 05:47] LABS: BASOPHIL (%) 0.5 % (0-1); BASOPHIL COUNT 0.1 K/uL (0-0.1); EOSINOPHIL (%) 5.5 % (0-5); EOSINOPHIL COUNT 0.7 K/uL (0-0.3); HEMATOCRIT 51.8 % (38.0-50.0); IMMATURE GRANULOCYTE (%) 0.6 % (0.0-0.7); LYMPHOCYTE (%) 20.7 % (15-42); LYMPHOCYTE COUNT 2.8 K/uL (1.0-2.8); MCH 31.7 PG (29.0-34.0); MCHC 34.6 G/DL (30.0-36.0); MCV 91.8 FL (86-99); MONOCYTE (%) 11.4 % (3-12); MONOCYTE COUNT 1.5 K/uL (0-0.8); NEUTROPHIL (%) 61.3 % (45-76); NEUTROPHIL COUNT 8.3 K/uL (1.8-6.4); RBC DIS.WIDTH-CV 14.2 % (11.8-14.6); RBC DIS.WIDTH-SD 46.5 % (39-53); WHITE BLOOD COUNT 13.5 K/uL (4.1-10.2)
[2018-03-05 05:49] LABS: HEMOGLOBIN 17.9 G/DL (12.5-16.6); RED BLOOD COUNT 5.64 M/uL (4.00-5.50)
[2018-03-05 07:27] LABS: PLATELET CLUMPS PRESENT - PLATELET COUNT APPEARS ADQ.
[2018-03-05 07:29] LABS: PLATELET COUNT UNABLE TO REPORT K/uL (156-360)
[2018-03-05 07:33] VITALS: BP 132/79
[2018-03-05] MEDS ORDERED: NICOTINE PATCH1 EAC2 TD (10:34)
[2018-03-05] MEDS ORDERED: BRILINTA90 MG PO (10:34)
[2018-03-05] MEDS ORDERED: LOPRESSOR25 MG PO (10:35)
[2018-03-05] MEDS ORDERED: ASPIR-LOW81 MG PO (10:35)
[2018-03-05] MEDS ORDERED: LISINOPRIL10 MG PO (10:35)
[2018-03-05] MEDS ORDERED: DOCUSATE SODIU100 MG PO (10:35)
[2018-03-05] MEDS ORDERED: ATORVASTATIN CA40 MG PO (10:35)
[2018-03-05 11:46] VITALS: BP 135/85
== END 2018-03-05 18:47 | DRG 270 ==
LOC: EME 04:26 → ENRESERV 04:37 → EME 05:31 → CATH 05:34 → ENRESERV 05:48 → 2SOUTH 08:12 → 4WEST 08:12 → ENRESERV 03-02 10:01 → 4EAST 03-02 14:08
PROVIDERS: Emergency Medicine; Internal Medicine; Internal Medicine Critical Care Medicine; Internal Medicine Interventional Cardiology; Internal Medicine Pulmonary Disease; Obstetrics & Gynecology
DX: I21.09 ST elevation (STEMI) myocardial infarction involving other coronary artery of anterior wall (principal); G93.1 Anoxic brain damage, not elsewhere classified; G89.4 Chronic pain syndrome; I34.0 Nonrheumatic mitral (valve) insufficiency; J14 Pneumonia due to Hemophilus influenzae; J44.0 Chronic obstructive pulmonary disease with (acute) lower respiratory infection; J96.01 Acute respiratory failure with hypoxia; M06.9 Rheumatoid arthritis, unspecified; A41.9 Sepsis, unspecified organism; G93.41 Metabolic encephalopathy; R57.0 Cardiogenic shock; D47.3 Essential (hemorrhagic) thrombocythemia; I25.10 Atherosclerotic heart disease of native coronary artery without angina pectoris; F17.210 Nicotine dependence, cigarettes, uncomplicated; K74.60 Unspecified cirrhosis of liver; I50.9 Heart failure, unspecified; I25.5 Ischemic cardiomyopathy; J20.9 Acute bronchitis, unspecified; J10.08 Influenza due to other identified influenza virus with other specified pneumonia; R65.21 Severe sepsis with septic shock
CPT/HCPCS: 36600; 70551; 71045; 80048; 80048 91; 80053; 80061; 80076; 80202; 80306 90; 81003; 82150; 82330; 82436; 82550; 82550 91; 82553; 82570; 82803; 82948; 83036; 83605; 83690; 83735; 83880; 83935; 84100; 84133; 84145 90; 84300; 84484; 85025; 85025 91; 85027; 85347; 85610; 85730; 86141; 86850; 86900; 86901; 87040; 87070; 87077; 87086; 87103; 87181; 87185; 87205; 87641; 93005; 93306; 94002; 94003; 94640; 94640 76; 94760; 94799; 95819; 97530 GO; 97530 GP; 99202; 99281; 99285; C1725; C1769; C1874; C1887; C1894; G0480; J0330; J0461; J0692; J0696; J1265; J1450; J1644; J1940; J2250; J2405; J2543; J2704; J3010; J3370; J3475; J7030; J7042; J7050; P9045; P9047; S0028

== ENCOUNTER 2018-03-20 12:30 | Inpatient (IN) | payer OTHER ==
[~2018-03-20] VITALS: Ht 182.9 cm; Wt 112.9 kg
[2018-03-20] VITALS (8 sets, daily range): BP systolic 82–129; BP diastolic 52–81
[~2018-03-20 12:30] MED LIST changes: +ASPIR-LOW81 MG PO; +ATORVASTATIN CA40 MG PO; +AVENTYL,PAMELOR50 MG PO; +BRILINTA90 MG PO; +DOCUSATE SODIU100 MG PO; +LISINOPRIL10 MG PO; +LOPRESSOR25 MG PO; +NICOTINE PATCH1 EAC2 TD
[2018-03-20 13:29] LABS: COMMENTS - BLOOD GASES A+C+; DEVICE NCH; O2 FLOW 7 L/MIN; SITE LR; TOTAL RESP RATE 15 resp/min
[2018-03-20 13:31] LABS: PCO2 41 mm Hg (35-45); PO2 86 mm Hg (80-100); pH 7.31 (7.35-7.45)
[2018-03-20 13:32] LABS: BASE EXCESS -5.4 mEq/L (-3 to +3); BICARBONATE 20.6 mEq/L (22-26); CARBOXY HGB 4.5 % (0-5); METHEMOGLOBIN 1.2 % (0-1.5)
[2018-03-20 13:32] LABS: BASOPHIL (%) 0.3 % (0-1); BASOPHIL COUNT 0.1 K/uL (0-0.1); EOSINOPHIL (%) 2.1 % (0-5); EOSINOPHIL COUNT 0.4 K/uL (0-0.3); HEMOGLOBIN 14.8 G/DL (12.5-16.6); IMMATURE GRANULOCYTE (%) 0.5 % (0.0-0.7); LYMPHOCYTE (%) 11.6 % (15-42); MCH 31.6 PG (29.0-34.0); MCHC 33.6 G/DL (30.0-36.0); MCV 93.8 FL (86-99); MONOCYTE (%) 7.2 % (3-12); MONOCYTE COUNT 1.3 K/uL (0-0.8); NEUTROPHIL (%) 78.3 % (45-76); NEUTROPHIL COUNT 13.5 K/uL (1.8-6.4); RBC DIS.WIDTH-CV 14.4 % (11.8-14.6); RBC DIS.WIDTH-SD 49.5 % (39-53); RED BLOOD COUNT 4.69 M/uL (4.00-5.50); WHITE BLOOD COUNT 17.3 K/uL (4.1-10.2)
[2018-03-20 13:33] LABS: PLATELET COUNT 294 K/uL (156-360)
[2018-03-20 13:37] LABS: INTER. NORMALIZED RATIO 1.3
[2018-03-20 13:40] LABS: PTT 45.2 SEC (25-37)
[2018-03-20 13:42] LABS: ALBUMIN 4.3 g/dL (3.2-4.8); CHLORIDE 100 mEq/L (99-109); POTASSIUM 4.4 mEq/L (3.7-5.4); SODIUM 139 mEq/L (136-147)
[2018-03-20 13:44] LABS: GLUCOSE 116 mg/dL (70-99)
[2018-03-20 13:46] LABS: TOTAL BILIRUBIN 0.6 mg/dL (0.0-1.0)
[2018-03-20 13:48] LABS: ALKALINE PHOSPHATASE 139 IU/L (3-129); CREATININE 5.2 mg/dL (0.6-1.3); GFR ESTIMATE (CALCULATED) 12 mL/min/ (58.99-99999)
[2018-03-20 13:49] LABS: UREA NITROGEN (BUN) 48 mg/dL (9-23)
[2018-03-20 13:50] LABS: AST (GOT) 21 IU/L (2-34)
[2018-03-20 13:51] LABS: ALT (GPT) 39 IU/L (3-49)
[2018-03-20 13:52] LABS: TROP-I INTERPRETATION NEGATIVE; TROPONIN-I 0.08 ng/mL (0.0-0.30)
[2018-03-20 17:24] LABS: COMMENTS - BLOOD GASES C+; DEVICE 840; FI02 100 %; MECHANICAL RATE 28 resp/min; MODE A/C; PCO2 24 mm Hg (35-45); PEEP 5 CM/H20; PO2 410 mm Hg (80-100); SITE RB; TIDAL VOLUME 600 ML; TOTAL RESP RATE 28 resp/min; pH 7.43 (7.35-7.45)
[2018-03-20 17:25] LABS: BASE EXCESS -6.7 mEq/L (-3 to +3); BICARBONATE 15.9 mEq/L (22-26); CARBOXY HGB 2.3 % (0-5); METHEMOGLOBIN 1.2 % (0-1.5)
[2018-03-20 18:11] LABS: THYROTROPIN (TSH) 0.74 MIU/L (0.4-5.5)
[2018-03-20 18:14] LABS: CREATINE KINASE 179 IU/L (1-294)
[2018-03-20 18:16] LABS: ALBUMIN 3.1 G/DL (3.2-4.8); ALKALINE PHOSPHATASE 98 IU/L (3-129); ALT (GPT) 26 IU/L (3-49); AST (GOT) 25 IU/L (2-34); CHLORIDE 105 MEQ/L (99-109); CREATININE 3.4 MG/DL (0.6-1.3); GFR ESTIMATE (CALCULATED) 20 mL/min/ (58.99-99999); GLUCOSE 102 mg/dL (70-99); POTASSIUM 4.2 MEQ/L (3.7-5.4); SODIUM 137 MEQ/L (136-147); TOTAL BILIRUBIN 0.6 MG/DL (0.0-1.0); TOTAL PROTEIN 5.8 G/DL (6.4-8.3); TRIGLYCERIDES 91 MG/DL (Normal: <150); UREA NITROGEN (BUN) 46 mg/dL (9-23)
[2018-03-20 18:19] LABS: HIGH-SENS C-REACTIVE PROTEIN > 8.00 MG/DL (0.02-0.20)
[2018-03-20 18:59] LABS: APPEARANCE CLEAR ((CLEAR)); BILIRUBIN NEGATIVE; BLOOD SMALL; COLOR YELLOW ((YELLOW)); GLUCOSE (STRIP) NEGATIVE; KETONES 5; LEUKOCYTES NEGATIVE; NITRITE NEGATIVE; PROTEIN (STRIP) 30; SPECIFIC GRAVITY 1.017 (1.000-1.030); UROBILINOGEN 0.2 MG/DL (0.2-1.0)
[2018-03-20 19:04] LABS: BASOPHIL (%) 0.3 % (0-1); EOSINOPHIL (%) 1.5 % (0-5); EOSINOPHIL COUNT 0.2 K/uL (0-0.3); IMMATURE GRANULOCYTE (%) 0.5 % (0.0-0.7); LYMPHOCYTE COUNT 1.4 K/uL (1.0-2.8); MCH 31.7 PG (29.0-34.0); MCHC 33.9 G/DL (30.0-36.0); MCV 93.5 FL (86-99); MONOCYTE (%) 8.2 % (3-12); MONOCYTE COUNT 1.2 K/uL (0-0.8); NEUTROPHIL (%) 79.5 % (45-76); NEUTROPHIL COUNT 11.4 K/uL (1.8-6.4); PLATELET COUNT 224 K/uL (156-360); RBC DIS.WIDTH-CV 14.3 % (11.8-14.6); RBC DIS.WIDTH-SD 49.1 % (39-53); RED BLOOD COUNT 3.85 M/uL (4.00-5.50); WHITE BLOOD COUNT 14.3 K/uL (4.1-10.2)
[2018-03-20 19:05] LABS: HEMOGLOBIN 12.2 G/DL (12.5-16.6)
[2018-03-20 19:24] LABS: BACTERIA RARE /HPF; CALCIUM OXALATE CRYSTALS 1+ /HPF; EPITHELIAL CELLS RARE /HPF; HYALINE CASTS TNTC /LPF; MUCUS 1+ /LPF; RED BLOOD CELLS 0-5 /HPF (0-5); UCUL ADDED? NO; WHITE BLOOD CELLS 0-5 /HPF (0-5)
[2018-03-20 19:25] LABS: UR CREATININE CONCENTRATION 172.9 MG/DL
[2018-03-21] VITALS (25 sets, daily range): BP systolic 85–130; BP diastolic 47–84
[2018-03-21 05:25] LABS: BASOPHIL (%) 0.4 % (0-1); BASOPHIL COUNT 0.1 K/uL (0-0.1); EOSINOPHIL COUNT 0.6 K/uL (0-0.3); HEMATOCRIT 37.5 % (38.0-50.0); HEMOGLOBIN 12.7 G/DL (12.5-16.6); IMMATURE GRANULOCYTE (%) 0.3 % (0.0-0.7); LYMPHOCYTE (%) 15.8 % (15-42); LYMPHOCYTE COUNT 2.3 K/uL (1.0-2.8); MCH 31.7 PG (29.0-34.0); MCHC 33.9 G/DL (30.0-36.0); MCV 93.5 FL (86-99); MONOCYTE (%) 6.5 % (3-12); NEUTROPHIL COUNT 10.8 K/uL (1.8-6.4); PLATELET COUNT 258 K/uL (156-360); RBC DIS.WIDTH-SD 48.2 % (39-53); RED BLOOD COUNT 4.01 M/uL (4.00-5.50); WHITE BLOOD COUNT 14.9 K/uL (4.1-10.2)
[2018-03-21 05:59] LABS: ALKALINE PHOSPHATASE 98 IU/L (3-129); ALT (GPT) 22 IU/L (3-49); AST (GOT) 16 IU/L (2-34); CHLORIDE 107 MEQ/L (99-109); GLUCOSE 100 mg/dL (70-99); MAGNESIUM 1.9 mg/dl (1.3-2.7); POTASSIUM 3.7 MEQ/L (3.7-5.4); SODIUM 140 MEQ/L (136-147); TOTAL BILIRUBIN 0.5 MG/DL (0.0-1.0); TOTAL PROTEIN 5.6 G/DL (6.4-8.3); UREA NITROGEN (BUN) 35 mg/dL (9-23)
[2018-03-21 06:04] LABS: GFR ESTIMATE (CALCULATED) 36 mL/min/ (58.99-99999)
[2018-03-21 14:01] LABS: CHLORIDE 107 MEQ/L (99-109); GFR ESTIMATE (CALCULATED) > 59 mL/min/ (58.99-99999); MAGNESIUM 1.7 mg/dl (1.3-2.7); POTASSIUM 3.7 MEQ/L (3.7-5.4); SODIUM 141 MEQ/L (136-147); TRIGLYCERIDES 117 MG/DL (Normal: <150); UREA NITROGEN (BUN) 24 mg/dL (9-23)
[2018-03-21 14:02] LABS: CREATININE 1.2 MG/DL (0.6-1.3); GLUCOSE 152 mg/dL (70-99)
[2018-03-22] VITALS (23 sets, daily range): BP systolic 90–108; BP diastolic 56–71
[2018-03-22 06:11] LABS: BASOPHIL (%) 0.3 % (0-1); EOSINOPHIL (%) 2.7 % (0-5); EOSINOPHIL COUNT 0.4 K/uL (0-0.3); HEMATOCRIT 33.2 % (38.0-50.0); IMMATURE GRANULOCYTE (%) 0.3 % (0.0-0.7); LYMPHOCYTE (%) 16.3 % (15-42); LYMPHOCYTE COUNT 2.3 K/uL (1.0-2.8); MCH 30.6 PG (29.0-34.0); MCHC 33.1 G/DL (30.0-36.0); MCV 92.5 FL (86-99); MONOCYTE (%) 6.1 % (3-12); MONOCYTE COUNT 0.9 K/uL (0-0.8); NEUTROPHIL (%) 74.3 % (45-76); NEUTROPHIL COUNT 10.5 K/uL (1.8-6.4); PLATELET COUNT 194 K/uL (156-360); RBC DIS.WIDTH-CV 14.1 % (11.8-14.6); RED BLOOD COUNT 3.59 M/uL (4.00-5.50); WHITE BLOOD COUNT 14.2 K/uL (4.1-10.2)
[2018-03-22 06:39] LABS: ALBUMIN 2.7 G/DL (3.2-4.8); ALKALINE PHOSPHATASE 73 IU/L (3-129); ALT (GPT) 15 IU/L (3-49); AST (GOT) 11 IU/L (2-34); CHLORIDE 101 MEQ/L (99-109); MAGNESIUM 1.7 mg/dl (1.3-2.7); PHOSPHORUS 2.6 mg/dL (2.5-4.9); POTASSIUM 3.1 MEQ/L (3.7-5.4); SODIUM 142 MEQ/L (136-147); TOTAL BILIRUBIN 0.5 MG/DL (0.0-1.0); UREA NITROGEN (BUN) 14 mg/dL (9-23)
[2018-03-22 06:41] LABS: CREATININE 0.7 MG/DL (0.6-1.3); GFR ESTIMATE (CALCULATED) > 59 mL/min/ (58.99-99999); GLUCOSE 105 mg/dL (70-99)
[2018-03-22 08:18] LABS: BASE EXCESS 8.8 mEq/L (-3 to +3); BICARBONATE 31.2 mEq/L (22-26); CARBOXY HGB 1.4 % (0-5); COMMENTS - BLOOD GASES A+C+; DEVICE 840; METHEMOGLOBIN 1.3 % (0-1.5); PCO2 34 mm Hg (35-45); PO2 132 mm Hg (80-100); SITE LR; pH 7.57 (7.35-7.45)
[2018-03-22 08:19] LABS: FI02 50 %; MECHANICAL RATE 20 resp/min; MODE AC; PEEP 5 CM/H20; TIDAL VOLUME 600 ML; TOTAL RESP RATE 20 resp/min
[2018-03-23] VITALS (24 sets, daily range): BP systolic 95–152; BP diastolic 59–87
[2018-03-23 05:24] LABS: BASOPHIL (%) 0.3 % (0-1); EOSINOPHIL (%) 8.8 % (0-5); EOSINOPHIL COUNT 0.9 K/uL (0-0.3); HEMATOCRIT 32.1 % (38.0-50.0); HEMOGLOBIN 10.5 G/DL (12.5-16.6); IMMATURE GRANULOCYTE (%) 0.5 % (0.0-0.7); LYMPHOCYTE (%) 19.3 % (15-42); LYMPHOCYTE COUNT 1.9 K/uL (1.0-2.8); MCH 31.1 PG (29.0-34.0); MCHC 32.7 G/DL (30.0-36.0); MONOCYTE (%) 7.1 % (3-12); MONOCYTE COUNT 0.7 K/uL (0-0.8); NEUTROPHIL COUNT 6.2 K/uL (1.8-6.4); PLATELET COUNT 172 K/uL (156-360); RBC DIS.WIDTH-CV 14.1 % (11.8-14.6); RBC DIS.WIDTH-SD 49.3 % (39-53); RED BLOOD COUNT 3.38 M/uL (4.00-5.50); WHITE BLOOD COUNT 9.7 K/uL (4.1-10.2)
[2018-03-23 06:11] LABS: ALBUMIN 2.9 G/DL (3.2-4.8); ALKALINE PHOSPHATASE 63 IU/L (3-129); ALT (GPT) 14 IU/L (3-49); AST (GOT) 12 IU/L (2-34); CHLORIDE 103 MEQ/L (99-109); CREATININE 0.6 MG/DL (0.6-1.3); GFR ESTIMATE (CALCULATED) > 59 mL/min/ (58.99-99999); GLUCOSE 84 mg/dL (70-99); PHOSPHORUS 3.5 mg/dL (2.5-4.9); POTASSIUM 3.7 MEQ/L (3.7-5.4); SODIUM 142 MEQ/L (136-147); TOTAL BILIRUBIN 0.5 MG/DL (0.0-1.0); TOTAL PROTEIN 5.2 G/DL (6.4-8.3); UREA NITROGEN (BUN) 7 mg/dL (9-23)
[2018-03-24] VITALS (18 sets, daily range): BP systolic 125–152; BP diastolic 71–109
[2018-03-24 05:34] LABS: BASOPHIL (%) 0.4 % (0-1); EOSINOPHIL (%) 3.1 % (0-5); EOSINOPHIL COUNT 0.3 K/uL (0-0.3); HEMATOCRIT 37.5 % (38.0-50.0); HEMOGLOBIN 12.7 G/DL (12.5-16.6); IMMATURE GRANULOCYTE (%) 0.6 % (0.0-0.7); LYMPHOCYTE COUNT 1.3 K/uL (1.0-2.8); MCH 31.2 PG (29.0-34.0); MCHC 33.9 G/DL (30.0-36.0); MCV 92.1 FL (86-99); MONOCYTE (%) 5.6 % (3-12); MONOCYTE COUNT 0.6 K/uL (0-0.8); NEUTROPHIL (%) 77.3 % (45-76); NEUTROPHIL COUNT 7.8 K/uL (1.8-6.4); PLATELET COUNT 218 K/uL (156-360); RBC DIS.WIDTH-CV 13.2 % (11.8-14.6); RBC DIS.WIDTH-SD 45.2 % (39-53); RED BLOOD COUNT 4.07 M/uL (4.00-5.50)
[2018-03-24 06:00] LABS: ALBUMIN 2.9 G/DL (3.2-4.8); ALKALINE PHOSPHATASE 74 IU/L (3-129); ALT (GPT) 17 IU/L (3-49); AST (GOT) 27 IU/L (2-34); CHLORIDE 104 MEQ/L (99-109); CREATININE 0.6 MG/DL (0.6-1.3); GFR ESTIMATE (CALCULATED) > 59 mL/min/ (58.99-99999); GLUCOSE 75 mg/dL (70-99); MAGNESIUM 1.8 mg/dl (1.3-2.7); PHOSPHORUS 3.9 mg/dL (2.5-4.9); POTASSIUM 3.8 MEQ/L (3.7-5.4); SODIUM 144 MEQ/L (136-147); TOTAL BILIRUBIN 0.7 MG/DL (0.0-1.0); TOTAL PROTEIN 5.5 G/DL (6.4-8.3); UREA NITROGEN (BUN) 9 mg/dL (9-23)
[2018-03-25 04:04] VITALS: BP 113/61
[2018-03-25 06:22] LABS: BASOPHIL (%) 0.3 % (0-1); EOSINOPHIL (%) 5.6 % (0-5); EOSINOPHIL COUNT 0.5 K/uL (0-0.3); HEMATOCRIT 38.6 % (38.0-50.0); HEMOGLOBIN 13.1 G/DL (12.5-16.6); IMMATURE GRANULOCYTE (%) 0.9 % (0.0-0.7); LYMPHOCYTE (%) 19.6 % (15-42); LYMPHOCYTE COUNT 1.8 K/uL (1.0-2.8); MCH 31.2 PG (29.0-34.0); MCHC 33.9 G/DL (30.0-36.0); MCV 91.9 FL (86-99); MONOCYTE (%) 11.3 % (3-12); MONOCYTE COUNT 1.1 K/uL (0-0.8); NEUTROPHIL (%) 62.3 % (45-76); NEUTROPHIL COUNT 5.9 K/uL (1.8-6.4); PLATELET COUNT 242 K/uL (156-360); RBC DIS.WIDTH-CV 13.4 % (11.8-14.6); RBC DIS.WIDTH-SD 45.3 % (39-53); WHITE BLOOD COUNT 9.4 K/uL (4.1-10.2)
[2018-03-25 06:46] LABS: ALBUMIN 2.7 G/DL (3.2-4.8); ALKALINE PHOSPHATASE 70 IU/L (3-129); ALT (GPT) 20 IU/L (3-49); AST (GOT) 22 IU/L (2-34); CHLORIDE 106 MEQ/L (99-109); CREATININE 0.9 MG/DL (0.6-1.3); GFR ESTIMATE (CALCULATED) > 59 mL/min/ (58.99-99999); MAGNESIUM 1.8 mg/dl (1.3-2.7); PHOSPHORUS 4.2 mg/dL (2.5-4.9); POTASSIUM 3.6 MEQ/L (3.7-5.4); SODIUM 144 MEQ/L (136-147); TOTAL PROTEIN 5.5 G/DL (6.4-8.3); UREA NITROGEN (BUN) 13 mg/dL (9-23)
[2018-03-25 06:51] LABS: GLUCOSE 104 mg/dL (70-99); TOTAL BILIRUBIN 0.5 MG/DL (0.0-1.0)
[2018-03-25 07:44] VITALS: BP 136/86
[2018-03-25 11:10] VITALS: BP 140/88
[2018-03-25 15:07] VITALS: BP 138/88
[2018-03-25 20:08] VITALS: BP 136/79
[2018-03-25 23:54] VITALS: BP 145/83
[2018-03-26 03:15] VITALS: BP 113/61
[2018-03-26 07:54] VITALS: BP 126/8
[2018-03-26 07:56] LABS: BASOPHIL (%) 0.6 % (0-1); BASOPHIL COUNT 0.1 K/uL (0-0.1); EOSINOPHIL (%) 6.6 % (0-5); EOSINOPHIL COUNT 0.7 K/uL (0-0.3); HEMATOCRIT 36.6 % (38.0-50.0); HEMOGLOBIN 12.4 G/DL (12.5-16.6); LYMPHOCYTE (%) 28.7 % (15-42); LYMPHOCYTE COUNT 3.1 K/uL (1.0-2.8); MCH 31.3 PG (29.0-34.0); MCHC 33.9 G/DL (30.0-36.0); MCV 92.4 FL (86-99); MONOCYTE (%) 9.2 % (3-12); NEUTROPHIL (%) 53.9 % (45-76); NEUTROPHIL COUNT 5.8 K/uL (1.8-6.4); PLATELET COUNT 261 K/uL (156-360); RBC DIS.WIDTH-CV 13.4 % (11.8-14.6); RBC DIS.WIDTH-SD 45.7 % (39-53); RED BLOOD COUNT 3.96 M/uL (4.00-5.50); WHITE BLOOD COUNT 10.8 K/uL (4.1-10.2)
[2018-03-26 08:22] LABS: ALBUMIN 2.8 G/DL (3.2-4.8); ALKALINE PHOSPHATASE 61 IU/L (3-129); ALT (GPT) 15 IU/L (3-49); AST (GOT) 16 IU/L (2-34); CHLORIDE 107 MEQ/L (99-109); CREATININE 1.1 MG/DL (0.6-1.3); GFR ESTIMATE (CALCULATED) > 59 mL/min/ (58.99-99999); GLUCOSE 82 mg/dL (70-99); MAGNESIUM 1.8 mg/dl (1.3-2.7); PHOSPHORUS 4.5 mg/dL (2.5-4.9); POTASSIUM 3.8 MEQ/L (3.7-5.4); SODIUM 145 MEQ/L (136-147); TOTAL BILIRUBIN 0.4 MG/DL (0.0-1.0); TOTAL PROTEIN 5.5 G/DL (6.4-8.3); UREA NITROGEN (BUN) 14 mg/dL (9-23)
[2018-03-26 11:42] VITALS: BP 129/76
[2018-03-26] MEDS ORDERED: OXYCODONE-APAP1 EACH PO (16:18)
[2018-03-26 17:10] VITALS: BP 121/72
[2018-03-26] MEDS ORDERED: AUGMENTIN875 MG PO (17:27)
== END 2018-03-26 17:38 | DRG 853 ==
LOC: EME → EDBD 12:30 → 4WEST 15:38 → EDOF 15:38 → ENRESERV 15:40 → 4WEST 15:57 → ENRESERV 03-24 12:11 → 2EAST 03-24 16:09
PROVIDERS: Emergency Medicine; Internal Medicine
DX: A41.9 Sepsis, unspecified organism (principal); J96.01 Acute respiratory failure with hypoxia; J69.0 Pneumonitis due to inhalation of food and vomit; I21.09 ST elevation (STEMI) myocardial infarction involving other coronary artery of anterior wall; R65.21 Severe sepsis with septic shock; N17.9 Acute kidney failure, unspecified; E87.2 Acidosis; J44.0 Chronic obstructive pulmonary disease with (acute) lower respiratory infection; J98.11 Atelectasis; K55.9 Vascular disorder of intestine, unspecified; E86.0 Dehydration; F17.210 Nicotine dependence, cigarettes, uncomplicated; G89.29 Other chronic pain; I25.10 Atherosclerotic heart disease of native coronary artery without angina pectoris; I25.5 Ischemic cardiomyopathy; I51.7 Cardiomegaly; B96.3 Hemophilus influenzae [H. influenzae] as the cause of diseases classified elsewhere; J20.9 Acute bronchitis, unspecified; K76.0 Fatty (change of) liver, not elsewhere classified; M06.9 Rheumatoid arthritis, unspecified; R29.6 Repeated falls; M54.5 Low back pain; I95.9 Hypotension, unspecified; K76.89 Other specified diseases of liver; K31.89 Other diseases of stomach and duodenum; K74.60 Unspecified cirrhosis of liver; E66.9 Obesity, unspecified; I25.2 Old myocardial infarction; Z87.01 Personal history of pneumonia (recurrent); Z87.11 Personal history of peptic ulcer disease; Z95.5 Presence of coronary angioplasty implant and graft; Z79.82 Long term (current) use of aspirin; Z79.02 Long term (current) use of antithrombotics/antiplatelets; Z68.33 Body mass index [BMI] 33.0-33.9, adult
CPT/HCPCS: 36600; 70450; 71045; 71275; 74176; 74177; 80048 91; 80053; 80202; 81003; 82436; 82533 91; 82550; 82550 91; 82570; 82803; 83605; 83735; 83880; 84100; 84133; 84145 90; 84300; 84443; 84478; 84484; 85025; 85025 91; 85610; 85730; 86141; 86850; 86900; 86901; 86920; 87040; 87070; 87077; 87185; 87205; 87641; 93005; 94002; 94003; 94640; 94760; 94799; 97530 GO; 99281; 99285; A6214; C1751; C9113; J1644; J2543; J2704; J3010; J3370; J3475; J3480; J7030; J7040; J7042; J7050; J7070; J7120; P9045